=== PATIENT | male | born 1945 | race Caucasian/White ===

== ENCOUNTER 2017-12-05 13:48 | Emergency (ER) | payer OTHER ==
[~2017-12-05] VITALS: Ht 177.8 cm; Wt 77.7 kg
[~2017-12-05 13:48] MED LIST: ADULT LOW DOSE81 M1 PO; CHLORTHALIDONE25 MG PO; LOTREL 5/201 CAPSULE PO; OMEGA 3 1,0001 EACH PO; ZOCOR20 MG PO
[2017-12-05 16:14] VITALS: BP 131/86
== END 2017-12-05 16:17 | disposition home or self-care (01) ==
LOC: EME 13:48
PROC: 0HQ1XZZ Repair Face Skin, External Approach (ICD-10-PCS; principal; 2017-12-05)
DX: S01.112A Laceration without foreign body of left eyelid and periocular area, initial encounter (principal); S06.0X0A Concussion without loss of consciousness, initial encounter; S50.02XA Contusion of left elbow, initial encounter; W01.0XXA Fall on same level from slipping, tripping and stumbling without subsequent striking against object, initial encounter; Y92.128 Other place in nursing home as the place of occurrence of the external cause; E11.9 Type 2 diabetes mellitus without complications; E78.5 Hyperlipidemia, unspecified; I10 Essential (primary) hypertension
CPT/HCPCS: 99281; 99285

== ENCOUNTER 2017-12-13 18:57 | Emergency (ER) | payer OTHER ==
[~2017-12-13] VITALS: Ht 177.8 cm; Wt 81.8 kg
[2017-12-13 19:52] LABS: HEMATOCRIT 37.7 % (38.0-50.0); HEMOGLOBIN 12.9 G/DL (12.5-16.6); MCH 29.5 PG (29.0-34.0); MCHC 34.2 G/DL (30.0-36.0); MCV 86.1 FL (86-99); PLATELET COUNT 276 K/uL (156-360); RBC DIS.WIDTH-CV 14.3 % (11.8-14.6); RBC DIS.WIDTH-SD 44.9 % (39-53); RED BLOOD COUNT 4.38 M/uL (4.00-5.50); WHITE BLOOD COUNT 9.9 K/uL (4.1-10.2)
[2017-12-13 20:05] LABS: ALBUMIN 3.9 g/dL (3.2-4.8); CHLORIDE 106 mEq/L (99-109); POTASSIUM 3.4 mEq/L (3.7-5.4); SODIUM 140 mEq/L (136-147)
[2017-12-13 20:08] LABS: GLUCOSE 129 mg/dL (70-99); TOTAL PROTEIN 6.9 g/dL (6.4-8.3)
[2017-12-13 20:10] LABS: TOTAL BILIRUBIN 0.3 mg/dL (0.0-1.0)
[2017-12-13 20:11] LABS: ALKALINE PHOSPHATASE 99 IU/L (3-129); CREATININE 0.8 mg/dL (0.6-1.3); GFR ESTIMATE (CALCULATED) > 59 mL/min/ (58.99-99999)
[2017-12-13 20:13] LABS: AST (GOT) 18 IU/L (2-34); UREA NITROGEN (BUN) 18 mg/dL (9-23)
[2017-12-13 20:14] LABS: ALT (GPT) 12 IU/L (3-49)
[2017-12-13 20:17] LABS: TROP-I INTERPRETATION NEGATIVE; TROPONIN-I < 0.01 ng/mL (0.0-0.30)
[2017-12-13 23:00] VITALS: BP 117/70
== END 2017-12-13 23:04 | disposition home or self-care (01) ==
LOC: EME 18:57
PROVIDERS: Emergency Medicine Emergency Medical Services
DX: R27.0 Ataxia, unspecified (principal); G23.1 Progressive supranuclear ophthalmoplegia [Steele-Richardson-Olszewski]; I45.10 Unspecified right bundle-branch block; I10 Essential (primary) hypertension; E78.5 Hyperlipidemia, unspecified; E11.9 Type 2 diabetes mellitus without complications; Z91.81 History of falling
CPT/HCPCS: 70551; 71045; 80053; 84484; 85027; 93005; 99281; 99285; J7040